=== PATIENT | female | born 1975 | race Caucasian/White ===

== ENCOUNTER 2019-06-25 08:59 | Observation (INO) | payer SELFPAY ==
[~2019-06-25] VITALS: Ht 180.3 cm; Wt 108.0 kg
[2019-06-25] MEDS ORDERED: KETOROLAC TROMETHAMINE 30 MG/ML VIAL IV STA (09:18)
[2019-06-25] MEDS ORDERED: ONDANSETRON HCL INJ 2MG/ML 2ML 2 MG/ML VIAL IV STA (09:18)
[2019-06-25] MEDS ORDERED: SODIUM CHLORIDE 0.9% 1000ML 1,000 ML IV STA (09:18)
[2019-06-25] MEDS ORDERED: FAMOTIDINE 20 MG/2 ML VIAL IV STA (09:24)
[2019-06-25] MEDS ORDERED: METHYLPREDNISOLONE SOD SUCC 125 MG/2ML VIAL IV ONE (09:30)
[2019-06-25] MEDS ORDERED: DIPHENHYDRAMINE HCL INJ 50 MG/ML VIAL IV ONE (09:30)
[2019-06-25] MEDS: PIPER-TAZ 3.375 GM 50 ML IV SCH ×2 (10:00→17:00)
[2019-06-25 10:01] LABS: BASOPHILS % 0.4 % (0.0-1.0); EOSINOPHILS # (AUTO) 0.4 (0.0-0.4); EOSINOPHILS % 4.7 % (0.0-6.0); HEMATOCRIT 41.2 % (34.2-44.1); HEMOGLOBIN 13.4 g/dL (12.0-16.0); LYMPHOCYTES # (AUTO) 2.1 (1.0-3.2); MEAN CORPUSCULAR HEMOGLOBIN 29.5 pg (28-32); MEAN CORPUSCULAR HGB CONC 32.5 g/dL (31-35); MEAN CORPUSCULAR VOLUME 90.7 fL (81-99); MONOCYTES # (AUTO) 0.6 (0.2-0.8); NEUTROPHILS # (AUTO) 4.7 (2.1-6.9); NEUTROPHILS % 60.5 % (38.7-80.0); PLATELET COUNT 239 x10e3/uL (140-360); RED BLOOD COUNT 4.54 x10e6/uL (3.6-5.1); RED CELL DISTRIBUTION WIDTH 12.7 % (11.7-14.4)
[2019-06-25 10:05] LABS: CLARITY,URINE CLEAR (CLEAR); COLOR,URINE YELLOW (YELLOW)
[2019-06-25 10:11] LABS: BILIRUBIN,URINE NEGATIVE (NEGATIVE); KETONES,URINE NEGATIVE (NEGATIVE); LEUKOCYTE ESTERASE ,URINE NEGATIVE (NEGATIVE); NITRITE,URINE NEGATIVE (NEGATIVE); PROTEIN,URINE DIPSTICK NEGATIVE (NEGATIVE); URINE UROBILINOGEN 0.2 mg/dL (0.2 - 1)
[2019-06-25 10:12] LABS: PREGNANCY TEST, URINE NEGATIVE (NEGATIVE)
[2019-06-25 10:13] LABS: BACTERIA,URINE RARE /HPF; EPITHELIAL CELLS,URINE FEW /LPF; RBC,URINE 0-5 /HPF (0-5); WBC,URINE (MAN) 0-5 /HPF (0-5)
[2019-06-25 10:25] LABS: ALANINE AMINOTRANSFERASE 13 IU/L (0-55); ALBUMIN 3.6 g/dL (3.5-5.0); ALKALINE PHOSPHATASE 77 IU/L (40-150); ANION GAP 11.1 mmol/L (8-16); BLOOD UREA NITROGEN 9 mg/dL (7-26); BUN/CREATININE RATIO 11 (6-25); CALCIUM 9.3 mg/dL (8.4-10.2); CARBON DIOXIDE 24 mmol/L (22-29); CHLORIDE 106 mmol/L (98-107); CREATININE, SERUM 0.79 mg/dL (0.57-1.11); EST GLOMERULAR FILTRATION RATE > 60 ML/MIN (60-); GLUCOSE 92 mg/dL (74-118); POTASSIUM 4.1 mmol/L (3.5-5.1); SODIUM 137 mmol/L (136-145)
[2019-06-25 10:29] LABS: INR 0.92; PARTIAL THROMBOPLASTIN TIME 26.7 seconds (23.8-35.5); PROTHROMBIN TIME 12.9 seconds (11.9-14.5)
[2019-06-25] MEDS: VANCOMYCIN 1GM/NS 250 ML 250 ML IV SCH ×2 (10:30→22:04)
--- NOTE | 2019-06-25 10:34 | NUR ---
STILL NO ANSWER; /АННА NOTIFIED
[2019-06-25] MEDS ORDERED: ONDANSETRON HCL INJ 2MG/ML 2ML 2 MG/ML VIAL IV PRN (11:30)
[2019-06-25] MEDS: DIPHENHYDRAMINE HCL INJ 50 MG/ML VIAL IV SCH ×3 (11:45→23:58)
[2019-06-25] MEDS: TETANUS/DIPHTHERIA TOX ADULT 0.5 ML SYR IM ONE ×2 (11:46→14:46)
--- OUTSIDE RECORDS SUMMARY | 2019-06-25 11:46 | XMS REPORT ---
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 Allergies, Adverse Reactions, Alerts This patient has no known allergies or adverse reactions. Medications This patient has no known medications. Encounters Start Date/Time End Date/Time Encounter Type Admission Type Attending [facility] Care Facility Care Department Encounter ID 2017-09-26 00:00:00 2017-09-27 00:00:00 Outpatient [facility] [id number]
[2019-06-25] MEDS ORDERED: FAMOTIDINE 20 MG/2 ML VIAL IV SCH ×2 (12:00→21:00)
[2019-06-25] MEDS ORDERED: TETANUS/DIPHTHERIA TOX ADULT 0.5 ML SYR ONE (14:49)
[2019-06-25] MEDS: HYDROCODONE/APAP 7.5MG-325MG 1 EA TAB PO PRN (18:36)
--- NOTE | 2019-06-26 | Consultation ---
DATE OF CONSULTATION: 06/25/2019 REASON FOR CONSULTATION: Abscess on the face. HISTORY OF PRESENT ILLNESS: This patient who is a 44-year-old white female with past medical history of history of severe acne, comes in with redness and swelling on the face and she was concerned that it was spreading to her eye. The patient was seen emergency room. PAST MEDICAL HISTORY: She denies. PAST SURGICAL HISTORY: Denies. ALLERGIES: NKA. SOCIAL HISTORY: Denies drug abuse. PHYSICAL EXAMINATION: GENERAL: She is currently alert, oriented, does not seem to be in acute distress. VITAL SIGNS: Stable, currently afebrile. HEENT: She is not icteric. On the face, there is an area about 2 cm with erythema and induration. She has several chronic ulcers noted on her face. NECK: Supple. CHEST: Clear. ABDOMEN: Soft. IMPRESSION: Cellulitis of the face, early abscess. We will put her on vancomycin 1 g q.12 with local heat pad. We will see how she is going to do in the next day or 2. Once it has improved, we can change to oral doxycycline 100 mg p.o. b.i.d. I think the patient has history of acne, recommend to do that for 1 month; however, I am concerned I am not so sure she is going to afford it. She says she has no insurance. We will discuss with case management. MD REINIER Sheets/TERRANCE /[id number]
[2019-06-26] MEDS: PIPER-TAZ 3.375 GM 50 ML IV SCH ×2 (00:05→05:23)
--- NOTE | 2019-06-26 00:42 | NUR ---
Patient moved to hospital bed at this time.
[2019-06-26] MEDS: HYDROCODONE/APAP 7.5MG-325MG 1 EA TAB PO PRN (01:16)
--- NOTE | 2019-06-26 03:43 | NUR ---
Patient resting at this time wiht no distress noted. RR even and unlabored.
[2019-06-26 05:07] LABS: BASOPHILS % 0.2 % (0.0-1.0); HEMATOCRIT 39.5 % (34.2-44.1); HEMOGLOBIN 12.8 g/dL (12.0-16.0); LYMPHOCYTES # (AUTO) 1.9 (1.0-3.2); LYMPHOCYTES % 15.1 % (18.0-39.1); MEAN CORPUSCULAR HEMOGLOBIN 29.8 pg (28-32); MEAN CORPUSCULAR HGB CONC 32.4 g/dL (31-35); MEAN CORPUSCULAR VOLUME 91.9 fL (81-99); MONOCYTES # (AUTO) 0.8 (0.2-0.8); NEUTROPHILS # (AUTO) 9.9 (2.1-6.9); NEUTROPHILS % 78.5 % (38.7-80.0); PLATELET COUNT 236 x10e3/uL (140-360); RED CELL DISTRIBUTION WIDTH 12.9 % (11.7-14.4)
[2019-06-26] MEDS: DIPHENHYDRAMINE HCL INJ 50 MG/ML VIAL IV SCH (05:15)
[2019-06-26 05:23] LABS: ALANINE AMINOTRANSFERASE 8 IU/L (0-55); ALBUMIN 3.1 g/dL (3.5-5.0); ALBUMIN/GLOBULIN RATIO 0.9 (0.8-2.0); ALKALINE PHOSPHATASE 65 IU/L (40-150); ANION GAP 8.2 mmol/L (8-16); BLOOD UREA NITROGEN 11 mg/dL (7-26); BUN/CREATININE RATIO 15 (6-25); CALCIUM 8.9 mg/dL (8.4-10.2); CARBON DIOXIDE 24 mmol/L (22-29); CHLORIDE 108 mmol/L (98-107); CREATININE, SERUM 0.72 mg/dL (0.57-1.11); EST GLOMERULAR FILTRATION RATE > 60 ML/MIN (60-); GLUCOSE 122 mg/dL (74-118); POTASSIUM 4.2 mmol/L (3.5-5.1); SODIUM 136 mmol/L (136-145)
--- NOTE | 2019-06-26 06:56 | NUR ---
Report to KATHE Mejía
--- NOTE | 2019-06-26 16:24 | History and Physical ---
HISTORY OF PRESENT ILLNESS: Ms. Kaye is a 44-year-old female, who denies any prior medical history except for acne of the face, came to the emergency room complaining of right-sided frontal area being tender and swollen and that it spread to her right eye. So, the patient was found to have cellulitis. Dr. Oneal already saw the patient, she is on IV vancomycin. PHYSICAL EXAMINATION: GENERAL: Today, she is awake and alert. She is doing better. VITAL SIGNS: Temperature is 97.7 and blood pressure 94/76. HEART: Regular rate. LUNGS: Clear to auscultation. ABDOMEN: Soft. SKIN: Right side of the face and around her eye still with some erythema and edema. PAST MEDICAL HISTORY: She denies. PAST SURGERY HISTORY: She had a consult on tonsillectomy. ALLERGIES: NO KNOWN DRUG ALLERGIES. SOCIAL HISTORY: She smokes, but she does not drink. LABORATORY WORK: White count is 12.61, hemoglobin is 12.8, and hematocrit 39.5. Potassium 4.2, creatinine is 0.72, and glucose is 122. Coagulation was normal. Urine did not show any abnormalities. Blood cultures and urine cultures are pending. Chest x-ray was in prior remission. ASSESSMENT: 1. Cellulitis of the face. 2. The patient thinks is insect bite. 3. Acne. PLAN: The plan at present time is to continue vancomycin IV q.12 hours. Once the patient improved maybe by tomorrow, she can be switched to doxycycline 100 mg twice a day and discharged home depending on how she looks. All this was discussed in extension with the patient. All questions were answered to satisfaction. MD CASANDRA Lr/TERRANCE /[id number]
== END 2019-06-26 10:46 | disposition home or self-care (01) ==
LOC: ER 08:59 → ERHOLD 11:30
PROVIDERS: ADMIT Internal Medicine; ATTEND Internal Medicine
DX: L03.211 Cellulitis of face (principal); L03.213 Periorbital cellulitis; F17.210 Nicotine dependence, cigarettes, uncomplicated; L70.9 Acne, unspecified; D72.829 Elevated white blood cell count, unspecified
CPT/HCPCS: 36415 ×2; 80053 ×2; 81001; 81025; 83735; 85025 ×2; 85610; 85730; 87040; 87086; 90471; 90714; 99284; G0378 ×2; J1200; J1885; J2405; J2543 ×2; J2930; J3370; J7030